=== PATIENT | male | born 1980 | race Caucasian/White ===

== ENCOUNTER 2018-05-05 17:35 | Emergency (ER) | payer MEDICARE, MEDICAID ==
[2018-05-05] MEDS ORDERED: NS 0.9% 1000 ML* 1,000 ML IV ONE (19:41)
[2018-05-05 19:59] LABS: ABS Basophils 0.1 10^3/ul (0-0.2); ABS Eosinophils 0.1 10^3/ul (0-0.6); ABS Lymphocytes 1.6 10^3/ul (1.0-4.8); ABS Monocytes 0.4 10^3/ul (0-0.8); ABS Neutrophils 4.4 10^3/ul (1.5-7.7); ABS Nucleated RBC 0 10^3/ul; Eosinophil % 0.9 % (0-6); Hematocrit 40 % (42-52); Hemoglobin 13.9 g/dl (14.0-18.0); Lymphocyte % 24.4 % (25-47); Mean Corpuscular HGB Conc 35 g/dl (31-36); Mean Corpuscular Hemoglobin 28 pg (27-31); Mean Corpuscular Volume 81 fL (80-94); Mean Platelet Volume 6.9 um3 (7.4-10.4); Nucleated Red Blood Cells % 0; Platelet Count 261 10^3/ul (150-450); Red Cell Distribution Width 13 % (10.5-15); White Blood Count 6.5 10^3/ul (3.5-10.8)
--- NOTE | 2018-05-05 20:13 | RAD ---
INDICATION: Pneumonia COMPARISON: September 16, 2010 TECHNIQUE: An AP portable view obtained at 1946 hours is submitted. FINDINGS: Bones/Soft Tissues: There are no acute bony findings. Cardiomediastinal: The cardiomediastinal silhouette is normal. Lungs: There are no infiltrates. Pleura: There are no pleural effusions. Other: None IMPRESSION: NO ACTIVE DISEASE.
[2018-05-05 20:15] LABS: EGFR Non-African American 125.5 (>60)
[2018-05-05] MEDS ORDERED: Ketorolac INJ* 30 MG/ML 1 ML VIAL IV PUSH ONE (21:00)
--- NOTE | 2018-05-05 21:52 | ED ---
Shortness of Breath - HPI Summary HPI Summary: Patient is a 37-year-old male with no significant PMH presenting to the ED with right-sided chest discomfort with taking deep breaths and shortness of breath. Symptoms began approximately 1 week ago and he was seen by his PCP who prescribed him Keflex for a PNA. No x-ray was obtained however. He states he feels no improvement since being on the Keflex. He denies any trauma or injury to the area. He has never had symptoms like this before. Symptoms are aggravated by taking deep breaths and alleviated with nothing. He has not tried Advil or other [id number]-[id number] medications. He denies any cardiac or pulmonary history. - History of Current Complaint Chief Complaint: EDShortnessOfBreath Time Seen by Provider: 05/05/18 19:22 Hx Obtained From: Patient Onset/Duration: Gradual Onset Timing: Constant Current Severity: Moderate Dyspnea At: Rest Aggrevating Factors: Deep Breaths Associated Signs & Symptoms: Negative - Risk Factors Pulmonary Embolism: Negative Cardiac: Negative Pseudomonas: Negative Tuberculosis: Negative - Allergy/Home Medications Allergies/Adverse Reactions: Allergies Allergy/AdvReac Type Severity Reaction Status Date / Time MS Sulfa Drugs [Sulfa Drugs] Allergy Severe Rash Verified 05/05/18 17:42 MS Sulfamethoxazole Allergy Intermediate Rash Verified 05/05/18 17:42 w/Trimethoprim [From Bactrim] MS Haloperidol AdvReac Intermediate Agitation Verified 05/05/18 17:42 [From Haldol w/Tartrazine] MS Tartrazine AdvReac Intermediate Agitation Verified 05/05/18 17:42 [From Haldol w/Tartrazine] PMH/Surg Hx/FS Hx/Imm Hx Previously Healthy: Yes Musculoskeletal History: Reports: Hx Back Problems, Other Musculoskeletal History - neck and back-medial nerves in C2-7 bilaterally cauterized Sensory History: Denies: Hx Contacts or Glasses Opthamlomology History: Denies: Hx Contacts or Glasses Neurological History: Reports: Other Neuro Impairments/Disorders - traumatic brain injury in 89 Psychiatric History: Reports: Hx Anxiety, Hx Post Traumatic Stress Disorder - Surgical History Surgery Procedure, Year, and Place: cauterize medial branch nerves C2-7; wisdom teeth - Immunization History Date of Tetanus Vaccine: 2009 Date of Influenza Vaccine: NO Hx Pertussis Vaccination: No Immunizations Up to Date: Unable to Obtain/Confirm Infectious Disease History: No Infectious Disease History: Denies: History Other Infectious Disease, Traveled Outside the [place] in Last 30 Days - Social History Occupation: Employed Full-time Lives: With Family Alcohol Use: Rare Hx Substance Use: Yes Substance Use Type: Reports: Prescribed Smoking Status (MU): Former Smoker Type: Cigarettes Review of Systems Constitutional: Negative Negative: Fever, Chills, Fatigue, Skin Diaphoresis Negative: Palpitations, Chest Pain Positive: Shortness Of Breath. Negative: Cough Negative: Abdominal Pain, Vomiting, Diarrhea, Nausea Genitourinary: Negative Positive: no symptoms reported, see HPI Neurological: Negative All Other Systems Reviewed And Are Negative: Yes Physical Exam Triage Information Reviewed: Yes Vital Signs On Initial Exam: Initial Vitals Temp Pulse Resp BP Pulse Ox 99.0 F 104 20 136/104 100 05/05/18 17:40 05/05/18 17:40 05/05/18 17:40 05/05/18 17:40 05/05/18 17:40 Vital Signs Reviewed: Yes Appearance: Positive: Well-Appearing, Well-Nourished Skin: Positive: Warm, Skin Color Reflects Adequate Perfusion Head/Face: Positive: Normal Head/Face Inspection Eyes: Positive: EOMI, AYAN - R, Conjunctiva Clear Neck: Positive: Supple, No Lymphadenopathy Respiratory/Lung Sounds: Positive: Clear to Auscultation, Breath Sounds Present Cardiovascular: Positive: RRR, Pulses are Symmetrical in both Upper and Lower Extremities Musculoskeletal: Positive: Pain @ - right sided chest wall pain - reproducible Neurological: Positive: Sensory/Motor Intact, Alert, Oriented to Person Place, Time, Speech Normal Psychiatric: Positive: Normal, Affect/Mood Appropriate AVPU Assessment: Alert Diagnostics - Vital Signs Vital Signs Temp Pulse Resp BP Pulse Ox 05/05/18 17:40 99.0 F 104 20 136/104 100 - Laboratory Lab Results: Lab Results 05/05/18 05/05/18 05/05/18 Range/Units 19:48 19:48 19:48 WBC 6.5 (3.5-10.8) 10^3/ul RBC 4.90 (4.00-5.40) 10^6/ul Hgb 13.9 L (14.0-18.0) g/dl Hct 40 L (42-52) % MCV 81 (80-94) fL MCH 28 (27-31) pg MCHC 35 (31-36) g/dl RDW 13 (10.5-15) % Plt Count 261 (150-450) 10^3/ul MPV 6.9 L (7.4-10.4) um3 Neut % (Auto) 68.2 (38-83) % Lymph % (Auto) 24.4 L (25-47) % Clay % (Auto) 5.6 (0-7) % Eos % (Auto) 0.9 (0-6) % Baso % (Auto) 0.9 (0-2) % Absolute Neuts (auto) 4.4 (1.5-7.7) 10^3/ul Absolute Lymphs (auto) 1.6 (1.0-4.8) 10^3/ul Absolute Monos (auto) 0.4 (0-0.8) 10^3/ul Absolute Eos (auto) 0.1 (0-0.6) 10^3/ul Absolute Basos (auto) 0.1 (0-0.2) 10^3/ul Absolute Nucleated RBC 0 10^3/ul Nucleated RBC % 0 D-Dimer, Quantitative (Less Than 230) ng/mL Sodium 138 (135-145) mmol/L Potassium 4.1 (3.5-5.0) mmol/L Chloride 102 (101-111) mmol/L Carbon Dioxide 30 (22-32) mmol/L Anion Gap 6 (2-11) mmol/L BUN 12 (6-24) mg/dL Creatinine 0.70 (0.67-1.17) mg/dL Est GFR ( Amer) 151.9 (>60) Est GFR (Non-Af Amer) 125.5 (>60) BUN/Creatinine Ratio 17.1 (8-20) Glucose 96 (70-100) mg/dL Lactic Acid 1.3 (0.5-2.0) mmol/L Calcium 9.3 (8.6-10.3) mg/dL Total Bilirubin 0.30 (0.2-1.0) mg/dL AST 15 (13-39) U/L ALT 13 (7-52) U/L Alkaline Phosphatase 51 (34-104) U/L Total Creatine Kinase 122 (10-223) U/L Troponin I 0.00 (<0.04) ng/mL Total Protein 6.9 (6.4-8.9) g/dL Albumin 4.4 (3.2-5.2) g/dL Globulin 2.5 (2-4) g/dL Albumin/Globulin Ratio 1.8 (1-3) 05/05/18 Range/Units 19:48 WBC (3.5-10.8) 10^3/ul RBC (4.00-5.40) 10^6/ul Hgb (14.0-18.0) g/dl Hct (42-52) % MCV (80-94) fL MCH (27-31) pg MCHC (31-36) g/dl RDW (10.5-15) % Plt Count (150-450) 10^3/ul MPV (7.4-10.4) um3 Neut % (Auto) (38-83) % Lymph % (Auto) (25-47) % Clay % (Auto) (0-7) % Eos % (Auto) (0-6) % Baso % (Auto) (0-2) % Absolute Neuts (auto) (1.5-7.7) 10^3/ul Absolute Lymphs (auto) (1.0-4.8) 10^3/ul Absolute Monos (auto) (0-0.8) 10^3/ul Absolute Eos (auto) (0-0.6) 10^3/ul Absolute Basos (auto) (0-0.2) 10^3/ul Absolute Nucleated RBC 10^3/ul Nucleated RBC % D-Dimer, Quantitative < 200 (Less Than 230) ng/mL Sodium (135-145) mmol/L Potassium (3.5-5.0) mmol/L Chloride (101-111) mmol/L Carbon Dioxide (22-32) mmol/L Anion Gap (2-11) mmol/L BUN (6-24) mg/dL Creatinine (0.67-1.17) mg/dL Est GFR ( Amer) (>60) Est GFR (Non-Af Amer) (>60) BUN/Creatinine Ratio (8-20) Glucose (70-100) mg/dL Lactic Acid (0.5-2.0) mmol/L Calcium (8.6-10.3) mg/dL Total Bilirubin (0.2-1.0) mg/dL AST (13-39) U/L ALT (7-52) U/L Alkaline Phosphatase (34-104) U/L Total Creatine Kinase (10-223) U/L Troponin I (<0.04) ng/mL Total Protein (6.4-8.9) g/dL Albumin (3.2-5.2) g/dL Globulin (2-4) g/dL Albumin/Globulin Ratio (1-3) Result Diagrams: 05/05/18 19:48 05/05/18 19:48 Lab Statement: Any lab studies that have been ordered have been reviewed, and results considered in the medical decision making process. Course/Dx - Course Course Of Treatment: During the course of treatment, the patient is evaluated for right-sided chest pain worse with inspiration and shortness of breath. He denies any cardiac history. He is otherwise healthy and takes no medications. Denies any trauma to the area. Denies any recent travel or smoking history. EKG obtained which shows a rate of 65 normal sinus rhythm. Troponin 0.00. D- dimer < 200. Chest x-ray obtained which shows no cardiopulmonary findings. All labs obtained and are unremarkable. Toradol 30 mg IV given with a moderate amount of relief. Patient's pain is reproducible. PERC 's score is 0. I believe this to be a musculoskeletal vs costochondral pain. He will discontinue the rest of his Keflex at this time as there is no signs of PE NA, no fevers, sweats, chills. He is agreeable to this plan and discharged. He voices no concerns at this time. He will be discharged home with a diagnosis of costochondritis and Toradol is given as prescription. He understands return precautions. - Diagnoses Differential Diagnosis/HQI/PQRI: Positive: Chest Wall Pain Provider Diagnoses: Chest wall pain, Chest pain on respiration Discharge - Sign-Out/Discharge Documenting (check all that apply): Discharge/Admit/Transfer - Discharge Plan Condition: Stable Disposition: HOME Prescriptions: Ketorolac TAB * [Toradol TAB *] 10 mg PO Q6H #16 tab Patient Education Materials: Costochondritis (ED) Referrals: Alexandru Simpson MD [Primary Care Provider] - Additional Instructions: Please follow up with Dr. Simpson Return to the ED for any worsening or changing symptoms Labs and chest xray all within normal limits today Toradol up to four times daily for any discomfort - Billing Disposition and Condition Condition: STABLE Disposition: Home
[2018-05-05 22:06] VITALS: BP 129/67
== END 2018-05-05 22:05 | disposition home or self-care (01) ==
LOC: ED 17:35
DX: R07.89 Other chest pain (principal); Z87.891 Personal history of nicotine dependence; R06.02 Shortness of breath
CPT/HCPCS: 36415; 71045; 80053; 82550; 83605; 84484; 85025; 85379; 93005; 96374; 99283; J1885

== ENCOUNTER 2019-10-27 08:31 | Emergency (ER) | payer MEDICARE, MEDICAID ==
--- OUTSIDE RECORDS SUMMARY | 2019-10-27 08:37 | XMS REPORT | Continuity of Care Document ---
:1980 External Reference #:[id number] Author Name Jonathan Santiago DO MPH Address [address] [place] [address], [address] [place] [address] Problems Active Problems Provider Date Somatic dysfunction of thoracic region Jonathan Santiago DO, MPH Onset: 2018 Somatic dysfunction of lumbar region Jonathan Santiago DO, MPH Onset: 05/08/2019 Cervical somatic dysfunction Jonathan Santiago DO, MPH Onset: 05/08/2019 Long-term current use of opiate analgesic Jonathan Santiago, DO, MPH Onset: 2018 drug Joint pain Jonathan Santiago, DO, MPH Onset: 05/08/2019 Malaise and fatigue SantiagoJonathan monroe, DO, MPH Onset: 05/08/2019 Low back pain Jonathan Santiago, DO, MPH Onset: 05/08/2019 Pain in thoracic spine Jonathan Santiago, DO, MPH Onset: 05/08/2019 Neck pain Jonathan Santiago, DO, MPH Onset: 05/08/2019 Chronic pain due to injury Jonathan Santiago DO, MPH Onset: 05/08/2019 Social History Type Date Description Comments Sex Unknown Cigarette Use Former Cigarette Smoker ETOH Use Has consumed alcohol in the past Tobacco Use Start: Unknown End: Unknown Patient is a former smoker Smoking Status Reviewed: 09/11/19 Patient is a former smoker Allergies, Adverse Reactions, Alerts Active Allergies Reaction Severity Comments Date Bactrim 06/23/2008 Sulfa 06/23/2008 Medications Active Medications SIG Qnty Indications Ordering Date Provider Morphine Sulfate ER 1 by mouth every 30tabs Jonathan Santiago, 06/03/2015 night chronic DO, MPH 30mg Tablets ER pain patient Dilaudid si by mouth 120tabs Jonathan Santiago 11/29/2010 4mg Tablets every 4 to 6 DO, MPH hours as directed chronic pain patient Skelaxin si/2-1 by 90tabs Jonathan Santiago, 05/03/2010 800mg Tablets mouth three times DO, MPH a day as directed chronic pain patient Morphine Sulfate ER si by mouth 30tabs Jonathan Santiago, 12/16/2009 every morning DO, MPH 60mg Tablets ER chronic pain patient Amphetamine Salt si po qam, Unknown Combo 0.5 po qpm 30mg Tablets Clonazepam si po q12h ud 60tabs Unknown 1mg Tablets Imitrex si po at onset 9tabs Unknown 50mg Tablets migraine, repeat once if needed Zofran Odt si po q8h 90tabs Unknown 4mg Tablets Dispers Fexofenadine HCL Unknown 60mg Tablets Immunizations Description No Information Available Vital Signs Date Vital Result Comment 09/11/2019 9:16am BP Systolic 132 mmHg BP Diastolic 84 mmHg Heart Rate 86 /min Respiratory Rate 20 /min Height 70 inches 5'10" Weight 169.00 lb Pain Level 6 Pain at this time. Pain Level With Medicine 6 on average with meds Pain Level Without Medicine 9 without meds BMI (Body Mass Index) 24.2 kg/m2 08/10/2019 3:43pm BP Systolic 128 mmHg BP Diastolic 82 mmHg Heart Rate 84 /min Respiratory Rate 20 /min Height 70 inches 5'10" Weight 170.00 lb Pain Level 7 Pain at this time. Pain Level With Medicine 6 on average with meds Pain Level Without Medicine 9 without meds BMI (Body Mass Index) 24.4 kg/m2 Results Description No Information Available Procedures Date Code Description Status 08/10/2019 98032 Therapeutic, Prophylactic Or Diagnostic Injection Subq/Im Completed 08/10/2019 84175 Test Autonomic Nervous System, Sudomotor Completed 08/10/2019 69685 Test Autonomic Nervous System, Cardiovagal Innervation Completed 07/10/2019 23907 Therapeutic, Prophylactic Or Diagnostic Injection Subq/Im Completed 06/02/2019 03813 Omt 1-2 Body Regions Completed 06/02/2019 16623 Therapeutic, Prophylactic Or Diagnostic Injection Subq/Im Completed 05/08/2019 59680 Omt 3-4 Body Regions Completed 05/08/2019 85192 Therapeutic, Prophylactic Or Diagnostic Injection Subq/Im Completed Medical Devices Description No Information Available Encounters Type Date Location Provider Dx Diagnosis Office Visit 08/10/2019 Main Office as Of Jonathan Santiago DO, G89.21 Chronic pain due 3:15p 11/28/13 MPH to trauma M54.2 Cervicalgia M54.6 Pain in thoracic spine M54.5 Low back pain 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 R53.83 Other fatigue G90.3 Multi-system degeneration of the autonomic nervous system Office Visit 07/10/2019 2:30p Main Office as Jonathan Santiago G89.21 Chronic pain due Of 11/28/13 DO, MPH to trauma M54.2 Cervicalgia M54.6 Pain in thoracic spine M54.5 Low back pain R53.83 Other fatigue 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 Office Visit 06/02/2019 4:00p Main Office as Jonathan Santiago G89.21 Chronic pain due Of 11/28/13 DO, MPH to trauma M54.2 Cervicalgia M99.01 Segmental and somatic dysfunction of cervical region M54.5 Low back pain M54.6 Pain in thoracic spine M25.50 Pain in unspecified joint R53.83 Other fatigue 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 Office Visit 05/08/2019 3:00p Main Office as Jonathan Santiago G89.21 Chronic pain due Of 11/28/13 DO, MPH to trauma M54.2 Cervicalgia M99.01 Segmental and somatic dysfunction of cervical region M54.5 Low back pain M99.03 Segmental and somatic dysfunction of lumbar region M54.6 Pain in thoracic spine M99.02 Segmental and somatic dysfunction of thoracic region R53.83 Other fatigue M25.50 Pain in unspecified joint 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2 Cervicalgia Santiago, Jonathan, DO, MPH 08/10/2019 M54.6 Pain in thoracic spine Santiago, Jonathan, DO, MPH 08/10/2019 M54.5 Low back pain Santiago, Jonathan, DO, MPH 08/10/2019 Z79.891 care home (current) use of 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 analgesic Santiago, Jonathan , DO, MPH 08/10/2019 R53.83 Other fatigue Santiago, Jonathan, DO, MPH 08/10/2019 G90.3 Multi-system degeneration of the autonomic Santiago, Jonathan, DO , MPH nervous system 07/10/2019 G89.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 Santiago, Jonathan, DO, MPH 07/10/2019 M54.2 Cervicalgia Santiago, Jonathan, DO, MPH 07/10/2019 M54.6 Pain in thoracic spine Santiago, Jonathan, DO, MPH 07/10/2019 M54.5 Low back pain Santiago, Jonathan, DO, MPH 07/10/2019 R53.83 Other fatigue Santiago, Jonathan, DO, MPH 07/10/2019 Z79.891 care home (current) use of opiate analgesic Santiago, Jonathan , DO, MPH 06/02/2019 G89.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 Santiago, Jonathan, DO, MPH 06/02/2019 M54.2 Cervicalgia Satniago, Jonathan, DO, MPH 06/02/2019 M99.01 Segmental and somatic dysfunction of Santiago, Jonathan, DO, MPH cervical region 06/02/2019 M54.5 Low back pain Santiago, Jonathan, DO, MPH 06/02/2019 M54.6 Pain in thoracic spine Santiago, Jonathan, DO, MPH 06/02/2019 M25.50 Pain in unspecified joint Santiago, Jonathan, DO, MPH 06/02/2019 R53.83 Other fatigue Santiago, Jonathan, DO, MPH 06/02/2019 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 Santiago, Jonathan , DO, MPH 05/08/2019 G89.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 Santiago, Jonathan, DO, MPH 05/08/2019 M54.2 Cervicalgia Santiago, Jonathan, DO, MPH 05/08/2019 M99.01 Segmental and somatic dysfunction of Santiago, Jonathan, DO, MPH cervical region 05/08/2019 M54.5 Low back pain Santiago, Jonathan, DO, MPH 05/08/2019 M99.03 Segmental and somatic dysfunction of lumbar Santiago, Jonathan, DO, MPH region 05/08/2019 M54.6 Pain in thoracic spine Santiago, Jonathan, DO, MPH 05/08/2019 M99.02 Segmental and somatic dysfunction of Santiago, Jonathan, DO, MPH thoracic region 05/08/2019 R53.83 Other fatigue Santiago, Jonathan, DO, MPH 05/08/2019 M25.50 Pain in unspecified joint Santiago, Jonathan, DO, MPH 05/08/2019 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 Symptoms and complaints discussed and reviewed today. No significant changes in physical findings. Continue current medical pain management.M54.2 CervicalgiaComments:Chronic. Symptoms and complaints discussed and reviewed today. No significant changes in physical findings. Continue current medical pain management.M54.5 Low back painComments:Chronic. Symptoms and complaints discussed and reviewed today.No changes in physical findings. 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 A urine drug test (UDT) was ordered for this patient and collected on site today. Creatinine has been ordered as well for specimen validity, not for kidney function. Preliminary UDT results are not final and should not be used to determine patient care or plan of treatment. Initially a qualitative immunoassay screen will bedone. Any inconsistent or positive findings will be further tested with a more comprehensive quantitative confirmation LCMS study. It is part of the treatment process of prescribing controlled substances and is considered standard of care.R53.83 Other fatigueComments:Symptoms and complaints discussed and reviewed today. No significant changes in physical findings. Continue current medical pain management. B12 injection administered after patient evaluated. 1ml IM for fatigue. (See Consent for injection-B12 document for lot number and expiration date.)G90.3 Multi-system degeneration of the autonomic nervous systemComments: Sudomotor test report reviewed with the patient today. The test was Positive for possible autonomicdysfunction at this time. Will follow effects of pain and current medical treatment. Future testingwill help to monitor the effects of chronic illness, pain and subsequent treatment on the autonomic nervous system. May retest in 3-6 monthsAlpha lipoic acid 100 - 200 mg tid. suggested to patient. This has been shown to help with the neuropathic component of pain and autonomic dysfunction.AllComments:Continue current medical pain management; injection therapy, osteopathic manipulation, PT / modalities, and consults as needed to manage chronic pain.Non - opioid pain management discussed and optionsdiscussed.Side effects discussed; anticipatory guidance given. Patient clearly understand and agree with all medical treatments and suggestions. All medicines prescribed are adequate and appropriate for this patient's complaint of pain, medical history, physical, and personal goals.Goals of Treatment are to provide adequate and appropriate multidisciplinary medical pain management to increase/ maintain patient's quality of life and functionality while maintaining satisfactory side effect profile andminimizing manager terminal end-organ damage. Importance of regular nutrition throughout the day discussed.Activity as toleratedContinue with PCP Functional Status Description No Information Available Mental Status Description No Information Available Referrals Description No Information Available
--- OUTSIDE RECORDS SUMMARY | 2019-10-27 08:37 | XMS REPORT | Continuity of Care Document ---
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 Onset: 05/11/2015 Social History Type Date Description Comments Sex Unknown Tobacco Use Start: Unknown End: Former Cigarette Smoker 1-10. 1-2 years 5-10 Cigarettes Daily Smoking Status Reviewed: 06/04/19 Former Cigarette Smoker 1-10. 1-2 years 5-10 Cigarettes Daily ETOH Use Denies alcohol use Tobacco Use Start: Unknown End: Patient is a former quit in 2006 Unknown smoker Recreational Drug Use Denies Drug Use Exercise Type/Frequency Walks daily 1-3 miles or more per day Exercise Type/Frequency Exercises regularly Allergies, Adverse Reactions, Alerts Active Allergies Reaction Severity Comments Date Bactrim 12/08/2013 Sulfa Antibiotics 12/08/2013 Haldol 12/08/2013 Medications Active Medications SIG Qnty Indications Ordering Date Provider Morphine Sulfate ER Total 90 mg per Levon SYasmin 05/11/2015 Beads day; 60 mg in the Gloria Johns 90mg Caps ER 24HR morning and 30 mg at night. Clonazepam 3 times per day; 75tabs Levon SYasmin 05/11/2015 1mg Tablets 1 mg in the Gloria Johns morning 6 days per week, 1/2 mg the 7th morning. Additionally; 1/2 mg in afternoon and 1/2 mg in the evening Ondansetron 1 three times a 30tabs Levon Tripp 04/21/2014 4mg Tablets day as needed for Gloria Johns Dispers nausea Sumatriptan Succinate 1 tab twice a day 10tabs Levon Tripp 10/15/2012 max 2 days a week Gloria Johns 100mg Tablets Flax Seed Oil 1 by mouth every Unknown 1000mg day sometimes Capsules Sudafed 1 by mouth twice 20tabs Unknown 30mg Tablets a day as needed Skelaxin 1 by mouth three Unknown 800mg Tablets times a day as needed (rarely) Hydromorphone HCL 1 by mouth every Unknown 4mg 4 to 6 hours as Tablets needed Amphetamine-Dextroamph 1 by mouth in the Unknown etamine morning, 1/2 by 30mg Tablets mouth in the afternoon Turmeric As needed Unknown Proair HFA 1-2 puffs by Unknown 108(90Base) mouth every 4 mcg/Act Aerosol hours as needed Fish Oil 1 tab by mouth Unknown 1000mg Capsules every morning Multi Vitamin 1 by mouth every Unknown Tablets day Immunizations Description No Information Available Vital Signs Date Vital Result Comment 09/03/2019 12:47pm Height 70 inches 5'10" Weight 173.00 lb Heart Rate 99 /min BP Systolic Sitting 118 mmHg BP Diastolic Sitting 80 mmHg O2 % BldC Oximetry 97 % BMI (Body Mass Index) 24.8 kg/m2 06/04/2019 9:01am Height 70 inches 5'10" Weight 161.12 lb Heart Rate 86 /min BP Systolic Sitting 108 mmHg Lue reg cuff BP Diastolic Sitting 70 mmHg Lue reg cuff Respiratory Rate 16 /min O2 % BldC Oximetry 96 % On Ra BMI (Body Mass Index) 23.1 kg/m2 Results Test Acquired Date Facility Test Result H/L Range Note Laboratory test 06/04/2019 [facility] Rheumatoid < 10 IU/mL Normal <[address] [place] [address] [phone] C Reactive Protein < 1.00 mg/L Normal <8.01 Cyclic Citrullinated Pep Igg <15.6 U 1 Nuclear AB (Negrita) By Ifa Igg <1:80 (Negative) 2 Anca Panel For 06/04/2019 [facility] Myeloperoxidase AB < 0.2 U 3 Vasculitis [address] [place] [address] [phone] Proteinase 3 AB < 0.2 U 4 1 REFERENCE VALUE <20.0 (Negative) Test Performed by: [facility] [place] [address] [place] [id number] 2 <1:80 (Negative) REFERENCE VALUE <1:80 (Negative) Test Performed by: [facility] [address] [place] [id number] 3 REFERENCE VALUE <0.4 (Negative) 4 REFERENCE VALUE <0.4 (Negative) Test Performed by: [address] [address] Procedures Description No Information Available Medical Devices Description No Information Available Encounters Type Date Location Provider Dx Diagnosis Office Visit 09/03/2019 [facility] Pennie Mcdowell J45.909 Unspecified asthma, 1:00p [facility] [employer] [facility] Office Visit 06/04/2019 [facility] Jone Galvez45.909 Unspecified asthma, 9:15a [facility] J98.4 Other disorders of lung Assessments Date Code Description Provider 09/03/2019 [id number] Unspecified asthma, thang Mcdowell MD 06/04/2019 Jone45.909 Unspecified asthma, uncomplicated Pennie Mcdowell MD 06/04/2019 J98.4 Other disorders of lung Pennie Mcdowell MD Plan of Treatment Future Appointment(s):08/24/2020 3:00 pm - Kamryn Mclaughlin NP at [facility]09/03/2019 - Pennie Mcdowell MDJ45.909 Unspecified asthma, uncomplicatedFollow up:1 year , PFTs prior Functional Status Description No Information Available Mental Status Description No Information Available Referrals Description No Information Available
--- OUTSIDE RECORDS SUMMARY | 2019-10-27 08:37 | XMS REPORT | Continuity of Care Document ---
:1980 External Reference #:[id number] Author Name Jonathan Santiago DO MPH Address [address] [place] [address], [address] [place] [address] Problems Active Problems Provider Date Somatic dysfunction of thoracic region Jonathan Santiago DO, MPH Onset: 2018 Somatic dysfunction of lumbar region Jonathan Santiago DO, MPH Onset: 05/08/2019 Cervical somatic dysfunction Jonathan Santiago DO, MPH Onset: 05/08/2019 Long-term current use of opiate analgesic Jonathan Snatiago, DO, MPH Onset: 2018 drug Joint pain [...] is a former smoker Smoking Status Reviewed: 10/09/19 Patient is a former smoker Allergies, Adverse [...] Available Vital Signs Date Vital Result Comment 10/09/2019 2:32pm BP Systolic 128 mmHg BP Diastolic 74 mmHg Heart Rate 76 /min Respiratory Rate 20 /min Height 70 inches 5'10" Weight 178.00 lb Pain Level 7 Pain at this time. Pain Level With Medicine 6 on average with meds Pain Level Without Medicine 9 without meds BMI (Body Mass Index) 25.5 kg/m2 09/11/2019 9:16am BP Systolic 132 mmHg BP Diastolic 84 mmHg Heart Rate 86 /min Respiratory Rate 20 /min Height 70 inches 5'10" Weight 169.00 lb Pain Level 6 Pain at this time. Pain Level With Medicine 6 on average with meds Pain Level Without Medicine 9 without meds BMI (Body Mass Index) 24.2 kg/m2 Results Description No Information Available Procedures Date Code Description Status 09/11/2019 43914 Therapeutic, Prophylactic Or Diagnostic Injection Subq/Im Completed 08/10/2019 03376 Therapeutic, Prophylactic Or Diagnostic Injection Subq/Im Completed 08/10/2019 89669 Test Autonomic Nervous System, Sudomotor Completed 08/10/2019 84027 Test Autonomic Nervous System, Cardiovagal Innervation Completed 07/10/2019 80925 Therapeutic, Prophylactic Or Diagnostic Injection Subq/Im Completed 06/02/2019 86087 Omt 1-2 Body Regions Completed 06/02/2019 80860 Therapeutic, Prophylactic Or Diagnostic Injection Subq/Im Completed 05/08/2019 06621 Omt 3-4 Body Regions Completed 05/08/2019 54088 Therapeutic, Prophylactic Or Diagnostic Injection Subq/Im Completed Medical Devices Description No Information Available Encounters Type Date Location Provider Dx Diagnosis Office Visit 09/11/2019 Main Office as Of Jonathan Santiago DO G89.21 Chronic pain due 9:00a 11/28/13 MPH to trauma M54.2 Cervicalgia M54.5 Low back pain 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 R53.83 Other fatigue G90.3 Multi-system degeneration of the autonomic nervous system Office Visit 08/10/2019 3:15p Main Office as Jonathan Santiago G89.21 Chronic pain due Of 11/28/13 DO, MPH to trauma M54.2 Cervicalgia M54.6 Pain in thoracic spine M54.5 Low back pain 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 R53.83 Other fatigue G90.3 Multi-system degeneration of the autonomic nervous system Office Visit 07/10/2019 2:30p Main Office as Jonathan Santiago G89.21 Chronic pain due Of 11/28/13 DO, MPH to trauma M54.2 Cervicalgia M54.6 Pain in thoracic spine M54.5 Low back pain R53.83 Other fatigue Z79.891 alf (current) use of opiate analgesic Office Visit 06/02/2019 4:00p Main Office as Jonathan Santiago G89.21 Chronic pain due Of 11/28/13 DO, MPH to trauma M54.2 Cervicalgia M99.01 Segmental and somatic dysfunction of cervical region M54.5 Low back pain M54.6 Pain in thoracic spine M25.50 Pain in unspecified joint R53.83 Other fatigue Z79.891 alf (current) use of opiate analgesic Office Visit [...] fatigue M25.50 Pain in unspecified joint Z79.891 alf (current) use of opiate analgesic Assessments Date Code Description Provider 10/09/2019 G89.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 Santiago, Jonathan, DO, MPH 10/09/2019 M54.5 Low back pain Santiago, Jonathan, DO, MPH 10/09/2019 M54.2 Cervicalgia Santiago, Jonathan, DO, MPH 10/09/2019 Z79.891 alf (current) use of opiate analgesic Santiago, Jonathan , DO, MPH 10/09/2019 R53.83 Other fatigue Santiago, Jonathan, DO, MPH 09/11/2019 G89.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 Santiago, Jonathan, DO, MPH 09/11/2019 M54.2 Cervicalgia Santiago, Jonathan, DO, MPH 09/11/2019 M54.5 Low back pain Santiago, Jonathan, DO, MPH 09/11/2019 Z79.891 alf (current) use of opiate analgesic Santiago, Jonathan [...] pain Santiago, Jonathan, DO, MPH 08/10/2019 Z79.891 alf (current) use of opiate analgesic Santiago, Jonathan [...] fatigue Santiago, Jonathan, DO, MPH 07/10/2019 Z79.891 alf (current) use of opiate analgesic Santiago, Jonathan , DO, MPH 06/02/2019 G89.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 Santiago, Jonathan, DO, MPH 06/02/2019 M54.2 Cervicalgia Santiago, Jonathan, DO, MPH 06/02/2019 M99.01 Segmental and somatic dysfunction of Santiago, Jonathan, DO, MPH cervical region 06/02/2019 M54.5 Low back pain Santiago, Jonathan, DO, MPH 06/02/2019 M54.6 Pain in thoracic spine Santiago, Jonathan, DO, MPH 06/02/2019 M25.50 Pain in unspecified joint Santiago, Jonathan, DO, MPH 06/02/2019 R53.83 Other fatigue Santiago, Jonathan, DO, MPH 06/02/2019 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 Symptoms and complaints discussed and reviewed today. No significant changes in physical findings. Continue current medical pain management.M54.5 Low back painComments:Chronic. Symptoms and complaints discussed and reviewed today.No changes in physical findings. Patient is stable and comfortable when current medical therapy is rendered.M54.2 CervicalgiaComments:Chronic. Symptoms and complaints discussed and reviewed today. No significant changes in physical findings. Continue current medical pain management.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New Labs: Urine Drug Screen, Ordered: 10/09/19Comments:Urine drug screen sample taken today to monitor opiate use and to monitor use of illicit substances.Will discuss results at next appointment.The following tests were ordered:6 AM, AMPH , SELENA, JEEVAN, BUP, CARIS, COCM, ETG, FENT, MCSHSG, OPI, OXY, PCP, TAPEN, XTSY , ZOLP. A urine drug test (UDT) was [...] injection-B12 document for lot number and expiration date.)AllComments:Continue current medical pain management; injection therapy, osteopathic [...] while maintaining satisfactory side effect profile andminimizing intermediate frame tender end-organ damage. Importance of regular nutrition throughout the day discussed.Activity as toleratedContinue with PCP Functional Status Description No Information Available Mental Status Description No Information Available Referrals Description No Information Available
--- NOTE | 2019-10-27 09:43 | UC ---
General HPI - HPI Summary HPI Summary: 38 yo gentleman c/o L thumb and wrist pain s/p injury yesterday. Thumb L hurt by drill and twisted at the same time. Still hurts, painful to move thumb in most directions. No p/d. Pt is R handed. Pain extends from thumb to wrist. Also notes some nonfocal elbow discomfort, both arms. No other injury at the time. + abrasion on thumb. - History of Current Complaint Chief Complaint: UCUpperExtremity Stated Complaint: THUMB INJURY Time Seen by Provider: 10/27/19 09:43 Hx Obtained From: Patient Pain Intensity: 7 - Allergy/Home Medications Allergies/Adverse Reactions: Allergies Allergy/AdvReac Type Severity Reaction Status Date / Time haloperidol [From Haldol] Allergy Agitation Verified 10/27/19 08:45 sulfamethoxazole Allergy Rash Verified 10/27/19 08:45 [From Bactrim] trimethoprim [From Bactrim] Allergy Rash Verified 10/27/19 08:45 PMH/Surg Hx/FS Hx/Imm Hx Previously Healthy: Yes - Surgical History Surgical History: Yes Surgery Procedure, Year, and Place: cauterize medial branch nerves C2-7; wisdom teeth - Family History Known Family History: Positive: None, Non-Contributory - Social History Alcohol Use: Rare Substance Use Type: None Smoking Status (MU): Former Smoker Type: Cigarettes When Did the Patient Quit Smoking/Using Tobacco: 6 years Household Exposure Type: Pipe - Immunization History Most Recent Tetanus Shot: about 2 years ago Review of Systems All Other Systems Reviewed And Are Negative: Yes Constitutional: Positive: Negative Skin: Positive: Other - see hpi Eyes: Positive: Negative ENT: Positive: Negative Respiratory: Positive: Negative Cardiovascular: Positive: Negative Gastrointestinal: Positive: Negative Genitourinary: Positive: Negative Motor: Positive: Other - see hpi Neurovascular: Positive: Other - see hpi Musculoskeletal: Positive: Arthralgia, Myalgia Neurological: Positive: Negative Psychological: Positive: Negative Is Patient Immunocompromised?: No Physical Exam Triage Information Reviewed: Yes Appearance: Well-Appearing, Well-Nourished Vital Signs: Initial Vital Signs Temp 99.0 F 10/27/19 08:38 Pulse 78 10/27/19 08:38 Resp 16 10/27/19 08:38 BP 136/82 10/27/19 08:38 Pulse Ox 100 10/27/19 08:38 Vital Signs Reviewed: Yes Eye Exam: Normal ENT Exam: Normal Neck exam: Normal Respiratory Exam: Normal Cardiovascular Exam: Normal Abdominal Exam: Normal Musculoskeletal Exam: Other - L thumb abrasion distal, no active bleeding. + eccymosis L thumb distal mcp and pid. Hurts to bend and rom. CR < 2 sec distal. + sens LT distal. + tender general 1st mc, and prox wrist tenderness (not directly snuff box). Straightens elbows. Neurological Exam: Normal Psychological Exam: Normal Skin Exam: Normal - see above musc skel re thumb / wrist details Course/Dx - Course Course Of Treatment: Reviewed xray reports with pt. Reviewed elevation, remove ring until swelling improved. Happily no fx identified on xray, but I suspect deeper ligmentous injury based on location and degree of pain. Thumb spica today, will f/u with orthopedic (hand). Dr. Hills on referral call , will refer her way to f/u outpt. Questions as posed answered to the best of my ability. - Diagnoses Provider Diagnosis: Left thumb sprain, Left wrist sprain, Crush injury Discharge ED - Sign-Out/Discharge Documenting (check all that apply): Patient Departure All imaging exams completed and their final reports reviewed: Yes - Discharge Plan Condition: Stable Disposition: HOME Prescriptions: Ibuprofen TAB* [Motrin TAB* 600 MG] 600 mg PO Q8H PRN #30 tab PRN Reason: Pain Patient Education Materials: Wrist Sprain (ED), Crush Injury (ED) Referrals: Alexandru Simpson MD [Primary Care Provider] - Kamryn Hills MD [Medical Doctor] - Additional Instructions: Splint during the day for 7 days, unless otherwise recommended by hand doctor. Follow up with hand doctor (Dr. Hills), call today for appointment within one week if possible. Please seek medical attention for worse or new problems. Elevate frequently. - Billing Disposition and Condition Condition: STABLE Disposition: Home
[2019-10-27 11:11] VITALS: BP 139/90
== END 2019-10-27 11:09 | disposition home or self-care (01) ==
LOC: UCEAST 08:31
DX: S63.602A Unspecified sprain of left thumb, initial encounter (principal); S63.502A Unspecified sprain of left wrist, initial encounter; S67.32XA Crushing injury of left wrist, initial encounter; Z88.2 Allergy status to sulfonamides; Z88.8 Allergy status to other drugs, medicaments and biological substances; Z87.891 Personal history of nicotine dependence; X50.1XXA Overexertion from prolonged static or awkward postures, initial encounter; Y92.9 Unspecified place or not applicable
CPT/HCPCS: 99213; G0463